=== PATIENT | female | born 1990 | race Caucasian/White ===

== ENCOUNTER 2017-06-22 12:17 | Emergency (ER) | payer MEDICAID ==
[~2017-06-22] VITALS: Ht 165.1 cm; Wt 104.4 kg
[2017-06-22 12:26] VITALS: BP 129/84
== END 2017-06-22 13:40 | disposition home or self-care (01) ==
LOC: ED 12:17
DX: S66.512A Strain of intrinsic muscle, fascia and tendon of right middle finger at wrist and hand level, initial encounter (principal); X58.XXXA Exposure to other specified factors, initial encounter; Y93.89 Activity, other specified; Y99.8 Other external cause status; Y92.89 Other specified places as the place of occurrence of the external cause

== ENCOUNTER 2017-08-01 21:27 | Emergency (ER) | payer MEDICAID ==
[~2017-08-01] VITALS: Ht 167.6 cm; Wt 106.6 kg
[2017-08-02 00:12] VITALS: BP 128/76
== END 2017-08-02 00:12 | disposition home or self-care (01) ==
LOC: ED 21:27
DX: H40.051 Ocular hypertension, right eye (principal); H20.9 Unspecified iridocyclitis; H10.89 Other conjunctivitis; H40.31X0 Glaucoma secondary to eye trauma, right eye, stage unspecified; S05.01XA Injury of conjunctiva and corneal abrasion without foreign body, right eye, initial encounter; Z90.89 Acquired absence of other organs; W20.8XXA Other cause of strike by thrown, projected or falling object, initial encounter; Y93.89 Activity, other specified; Y92.89 Other specified places as the place of occurrence of the external cause; Y99.8 Other external cause status

== ENCOUNTER 2018-04-05 15:41 | Emergency (ER) | payer MEDICAID ==
[~2018-04-05] VITALS: Ht 165.1 cm; Wt 102.0 kg
[2018-04-05 17:34] VITALS: BP 155/90
[2018-04-05 17:37] LABS: UA SPECIFIC GRAVITY 1.025 (1.005-1.035); microscopic required? YES; urine erythrocyte 1+ (NEGATIVE)
== END 2018-04-05 17:34 | disposition home or self-care (01) ==
LOC: ED 15:41
PROVIDERS: Emergency Medicine
DX: N39.0 Urinary tract infection, site not specified (principal); L73.8 Other specified follicular disorders; Z90.49 Acquired absence of other specified parts of digestive tract
CPT/HCPCS: 87491; 87591

== ENCOUNTER 2018-08-23 21:24 | Emergency (ER) | payer MEDICAID ==
[2018-08-23 21:31] VITALS: BP 142/77; Ht 165.1 cm
== END 2018-08-24 01:00 | disposition home or self-care (01) ==
LOC: ED 21:24
DX: S63.502A Unspecified sprain of left wrist, initial encounter (principal); Z90.89 Acquired absence of other organs; W01.0XXA Fall on same level from slipping, tripping and stumbling without subsequent striking against object, initial encounter; Y93.89 Activity, other specified; Y92.89 Other specified places as the place of occurrence of the external cause; Y99.8 Other external cause status

== ENCOUNTER 2019-03-28 17:18 | Emergency (ER) | payer SELFPAY ==
[~2019-03-28] VITALS: Ht 167.6 cm; Wt 109.3 kg
[2019-03-28 17:33] VITALS: Ht 167.6 cm; Wt 109.3 kg
[2019-03-28 20:41] VITALS: BP 103/66
== END 2019-03-28 20:41 | disposition home or self-care (01) ==
LOC: ED 17:18
DX: O26.893 Other specified pregnancy related conditions, third trimester (principal); R10.2 Pelvic and perineal pain; Z90.89 Acquired absence of other organs; Z3A.28 28 weeks gestation of pregnancy
CPT/HCPCS: J7030